=== PATIENT | male | born 1955 | race Caucasian/White ===

== ENCOUNTER 2023-10-05 19:01 | Emergency (ER) | payer OTHER ==
[~2023-10-05] VITALS: Ht 185.4 cm; Wt 109.5 kg
[2023-10-05 19:13] VITALS: BP 169/76; PULSE 63; RESP 18; TEMP 98.9; O2SAT 99
[2023-10-05] MEDS ORDERED: LISI10TA30 PO (19:25)
[2023-10-05] MEDS: lisinopriL 20 MG TAB PO ONE (19:41)
[2023-10-05 19:59] VITALS: BP 167/89; PULSE 91; RESP 20; TEMP 98.1; O2SAT 95
== END 2023-10-05 19:59 | disposition home or self-care (01) ==
LOC: MED 19:01
DX: I10 Essential (primary) hypertension (principal); I48.91 Unspecified atrial fibrillation; E11.9 Type 2 diabetes mellitus without complications; Z79.899 Other long term (current) drug therapy
CPT/HCPCS: 99283